=== PATIENT | male | born 1980 | race African-American/Black ===

== ENCOUNTER 2019-02-18 15:38 | Emergency (ER) | payer SELFPAY ==
[~2019-02-18] VITALS: Ht 172.7 cm; Wt 81.6 kg
[2019-02-18] VITALS (14 sets, daily range): BP systolic 104–149; BP diastolic 63–70
[2019-02-18] MEDS ORDERED: Haloperidol 5mg/ml Inj IM ONE (15:45)
[2019-02-18] MEDS ORDERED: DiphenhydrAMINE 50mg/ml Inj IVP ONE (15:45)
[2019-02-18] MEDS ORDERED: DiphenhydrAMINE 50mg/ml Inj ONE (15:47)
[2019-02-18] MEDS ORDERED: Haloperidol 5mg/ml Inj ONE (15:47)
--- NOTE | 2019-02-18 15:50 | NUR ---
ED Nurse Note:pt. was BIBA from the street with possible drug use and severe agitation, he was placed on hold by [employer] due to danger to others- he was swinging knife in public area on [facility],
[2019-02-18] MEDS ORDERED: LORazepam Inj 2mg/ml 1ml IM ONE (16:00)
--- NOTE | 2019-02-18 16:00 | NUR ---
ED Nurse Note:pt. 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
--- NOTE | 2019-02-18 16:52 | NUR ---
ED Nurse Note:blood and urine sen tto labs, pt's personal belongings placed to locker #2
[2019-02-18 16:53] LABS: BASOPHILS % (AUTO) 1.3 % (0.0-2.0); EOSINOPHILS % (AUTO) 2.3 % (0.0-3.0); HEMATOCRIT 37.5 % (42.0-52.0); HEMOGLOBIN 12.9 G/DL (14.2-18.0); LYMPHOCYTES % (AUTO) 22.6 % (20.0-45.0); MEAN CORPUSCULAR VOLUME 82 FL (80-99); MONOCYTES % (AUTO) 8.8 % (1.0-10.0); PLATELET COUNT 273 K/UL (150-450); RED BLOOD COUNT 4.56 M/UL (4.70-6.10); RED CELL DISTRIBUTION WIDTH 10.5 % (11.6-14.8); WHITE BLOOD COUNT 8.5 K/UL (4.8-10.8)
[2019-02-18 16:54] LABS: APPEARANCE,URINE SLIGHTLY CLOUDY; BILIRUBIN, URINE NEGATIVE (NEGATIVE); COLOR,URINE YELLOW; GLUCOSE, URINE (UA) NEGATIVE (NEGATIVE); KETONES,URINE 1+ (NEGATIVE); LEUKOCYTE ESTERASE ,URINE NEGATIVE (NEGATIVE); NITRITE,URINE NEGATIVE (NEGATIVE); PH,URINE 5 (4.5-8.0); PROTEIN,URINE 1+ (NEGATIVE); UROBILINOGEN,URINE NORMAL MG/DL (0.0-1.0)
[2019-02-18 17:02] LABS: ANION GAP 11 mmol/L (5-15); BLOOD UREA NITROGEN 23 mg/dL (7-18); CARBON DIOXIDE 25 MMOL/L (21-32); CHLORIDE 108 MMOL/L (98-107); POTASSIUM 3.4 MMOL/L (3.5-5.1); SODIUM 144 MMOL/L (136-145)
[2019-02-18 17:06] LABS: ALANINE AMINOTRANSFERASE 29 U/L (12-78); ALBUMIN 3.7 G/DL (3.4-5.0); ALKALINE PHOSPHATASE 68 U/L (46-116); ASPARTATE AMINO TRANSFERASE 28 U/L (15-37); BILIRUBIN,TOTAL 0.6 MG/DL (0.2-1.0)
--- NOTE | 2019-02-18 17:35 | NUR ---
ED Nurse Note:behaivioral restraints were discontinued per ER PA order
--- NOTE | 2019-02-18 18:19 | Emergency Room Report ---
History of Present Illness General Chief Complaint: Behavioral Complaint Source: Patient (Samy Saez) Present Illness HPI 38-year-old male with unknown past medical history possible underlying psychiatric disorder brought in by paramedics and [employer] on a 5150 hold due to running in the street holding a knife having suicidal ideations. Denies homicidal ideation, drug use, no other associated symptoms. Patient is not a good historian, enters the emergency room in handcuffs and spitting at staff as well as kicking. Patient states being aggressive and yelling. Upon arrival Haldol, Benadryl, and Ativan had to be administered in order to calm patient down due to injury and harm towards others. (Samy Saez) Allergies: Coded Allergies: No Known Allergies (Unverified , 02/18/19) Patient History Past Medical History: see triage record Past Surgical History: unable to obtain Family History: unable to obtain Immunizations: UTD Reviewed Nursing Documentation: PMH: Agreed; PSxH: Agreed (Samy Saez) Nursing Documentation-PMH Past Medical History: No Stated History (Samy Saez) Review of Systems All Other Systems: negative except mentioned in HPI (Samy Saez) Physical Exam Vital Signs Date Time Temp Pulse Resp B/P (MAP) Pulse Ox O2 Delivery O2 Flow Rate FiO2 02/18/19 15:29 98.6 86 18 158/76 (103) 97 Room Air Sp02 EP Interpretation: reviewed, normal General Appearance: alert/responsive, GCS 15, non-toxic Head: atraumatic Eyes: PERRL, lids + conjunctiva normal ENT: normal ENT inspection, TMs + canals normal Neck: supple/symm/no masses Respiratory: normal inspection, effort normal, no rhonchi Cardiovascular: normal inspection, regular rate, rhythm Gastrointestinal: non-tender Musculoskeletal: normal inspection, gait & station normal Neurologic: normal inspection, CN II-XII intact, oriented x3 Psychiatric: normal inspection, judgment & insight normal, memory normal, other - Delusions and hallucinations Skin: normal inspection, no rash Lymphatic: normal inspection (Samy Saez) Medical Decision Making PA Attestation All diagnoses and treatment plans were reviewed and discussed with my supervising physician Dr. Welch (Samy Saez) PA Attestation I saw this patient along with PARTH Benson and I approve with care and management Briefly, this is a 38-year-old male brought in on 5150 legal status by [place] police for suicidal gestures. The patient was reportedly waving a knife in public making threatening statements to self and others. He arrives agitated and combative. Required chemical and wrist restraints. Tested positive for methamphetamines. He has now calm and sleeping comfortably. He is medically cleared and will be transferred to a psychiatric facility (Chao Welch MD) Diagnostic Impression: Primary Impression: Amphetamine abuse Additional Impression: Psychosis ER Course 38-year-old male with unknown past medical history possible underlying psychiatric disorder brought in by paramedics and [employer] on a 5150 hold due to running in the street holding a knife having suicidal ideations. Denies homicidal ideation, drug use, no other associated symptoms. Patient is not a good historian, enters the emergency room in handcuffs and spitting at staff as well as kicking. Patient states being aggressive and yelling. Upon arrival Haldol, Benadryl, and Ativan had to be administered in order to calm patient down due to injury and harm towards others. Ddx considered but are not limited to: generalized anxiety disorder, panic attack, depression with psychotic feature, bipolar disorder, drug overdose Vital signs: are WNL, pt. is afebrile H&PE are most consistent with: Amphetamine abuse, psychosis ORDERS: Psychiatric order set ED INTERVENTIONS: Haldol, Ativan, NS bolus, Benadryl Patient to be transferred to psychiatric facility. Patient stable at time of transfer, patient is medically cleared (Samy Saez) Last Vital Signs Date Time Temp Pulse Resp B/P (MAP) Pulse Ox O2 Delivery O2 Flow Rate FiO2 02/18/19 17:19 98.6 96 20 139/69 100 Room Air (Samy Saez) Disposition: XFER TO PSYCH HOSP/UNIT Condition: Stable Referrals: NOT CHOSEN IPA/,REFERRING (PCP) Samy Saez Feb 18, 2019 18:19 Chao Welch MD Feb 18, 2019 20:49
--- NOTE | 2019-02-18 18:35 | NUR ---
ED Nurse Note:pt. was moved to treatment room and report given to Hardik
--- NOTE | 2019-02-18 19:08 | NUR ---
HAND-OFF: Report given to DTOTIE Simental. no orders to carry at this moment.
--- NOTE | 2019-02-18 20:02 | NUR ---
ER Nurse Note: Pt stable, no signs of distress, RA. Pt calm, cooperative, VSS. Spoke with DOTTIE Pace at [facility] for possible placement. Sitter at bedside. All safety measures met; will continue to monitor.
--- NOTE | 2019-02-18 20:26 | NUR ---
ER Nurse Note: Spoke with DOTTIE Pace at [facility]. Pt is being accepted under Dr. Mulligan, open unit. Call back number for DOTTIE Pace -
--- NOTE | 2019-02-18 22:33 | NUR ---
ER Nurse Note: Pt stable, no signs of distress, asleep. SLIV removed, site clean and bandaged. All safety measures met; will conitnue to [facility].
--- NOTE | 2019-02-18 23:15 | NUR ---
ER Nurse Note: Pt left with [facility]. All belongings taken from locker 2 and given to EMS. Pt stable for transfer, no signs of distress, VSS. Called DOTTIE Pace and gave her an estimated ETA.
== END 2019-02-18 23:15 ==
LOC: EDBD 15:38 → EMR 15:45
DX: F15.10 Other stimulant abuse, uncomplicated (principal); F29 Unspecified psychosis not due to a substance or known physiological condition
CPT/HCPCS: 36415; 80053; 80307; 81003; 85025; 96361; 96372; 96374; 99285; G0480; J1200; J1630; J7030